=== PATIENT | female | born 1990 | race Two or more races ===

== ENCOUNTER 2023-06-09 07:47 | Outpatient (CLI) | payer OTHER | END 2023-06-09 08:03 | disposition home or self-care (01) | LOC: RX STUDY 07:47 | DX: N93.0 Postcoital and contact bleeding (principal) ==

== ENCOUNTER 2023-08-28 05:59 | Day surgery (SDC) | payer OTHER ==
[~2023-08-28] VITALS: Ht 154.9 cm; Wt 86.6 kg
[~2023-08-28 05:59] MED LIST: SYNTHROID50 MCG PO
[2023-08-28] MEDS ORDERED: PERCOCET 5-3251 EACH PO (08:08)
[2023-08-28] MEDS ORDERED: RECTICARE30 GM TOP (08:09)
== END 2023-08-28 12:40 | disposition home or self-care (01) ==
LOC: CIR.AMB 05:59
PROVIDERS: ATTEND Surgery
DX: K60.1 Chronic anal fissure (principal); K60.3 Anal fistula; K62.5 Hemorrhage of anus and rectum; I10 Essential (primary) hypertension; Z20.822 Contact with and (suspected) exposure to COVID-19